=== PATIENT | female | born 1955 | race Two or more races ===

== ENCOUNTER 2019-02-17 12:41 | Day surgery (SDC) | payer OTHER ==
[2019-02-16 14:01] VITALS: BMI 32.0
[2019-02-17] MEDS ORDERED: ROPIVACAINE HCL 0.5% 30ML VIAL ONE (13:01)
[2019-02-17] MEDS ORDERED: MIDAZOLAM HCL 2 MG/2 ML SINGLE DOSE VIAL ONE ×2 (13:01→14:21)
[2019-02-17] MEDS ORDERED: SUCCINYLCHOLINE CHLORIDE 200 MG/10 ML SYRINGE ONE (13:40)
[2019-02-17] MEDS ORDERED: ONDANSETRON 4 MG/2 ML VIAL IVPUSH PRN (14:12)
[2019-02-17] MEDS ORDERED: oxyCODONE HCL 5 MG TABLET PO PRN (14:12)
[2019-02-17] MEDS ORDERED: LACTATED RINGERS SOLUTION 1,000 ML IV SCH (14:15)
[2019-02-17] MEDS ORDERED: ceFAZolin SODIUM 1 GM VIAL ONE (14:17)
[2019-02-17] MEDS ORDERED: PROPOFOL 20 ML ONE ×2 (14:31→15:03)
[2019-02-17] MEDS ORDERED: KETOROLAC TROMETHAMINE 30 MG/1 ML VIAL ONE ×2 (15:32)
[2019-02-17] MEDS ORDERED: ONDANSETRON 4 MG/2 ML VIAL ONE (15:51)
[2019-02-17 17:10] VITALS: BP 128/75
[2019-02-17 17:40] VITALS: PULSE 78; TEMP 97.8
--- NOTE | 2019-02-19 13:38 | OP ---
DATE OF OPERATION: 02/17/2019 PREOPERATIVE DIAGNOSIS: Left shoulder rotator cuff tear, subacromial impingement syndrome, labral tearing. POSTOPERATIVE DIAGNOSES: 1. Left shoulder rotator cuff tear. 2. Left shoulder subacromial impingement syndrome with anterior-inferior subacromial spur. 3. Glenohumeral joint labral partial tearing and fraying and synovitis. OPERATIVE PROCEDURES: 1. Left shoulder arthroscopic rotator cuff repair. 2. Left shoulder arthroscopic extensive debridement of glenohumeral joint. 3. Arthroscopic subacromial decompression with anterior-inferior acromioplasty. SURGEON: Primo Mondragon MD CERTIFIED HISTOLOGIC TECHNICIAN: HIRO Escalante ANESTHESIA: Regional. COMPLICATIONS: None. ESTIMATED BLOOD LOSS: Minimal. INDICATION FOR PROCEDURE: The patient is a 63-year-old, female with the above finding, indicated for operative treatment. Risks, benefits, and alternatives were discussed with patient at length. Proper informed consent was obtained. PROCEDURE: After proper identification of the patient, the patient was brought to the operating room, after she had received a regional anesthetic. She was placed into the beach-chair position with all points of contact well padded and an in-line cervical position maintained throughout the procedure. Left upper extremity was prepped and draped in the usual sterile fashion. Arthroscopy was performed through posterior, lateral, and anterior portals. All portals were made with skin incision only and blunt dissection down to the joint capsule. Arthroscope was first introduced into the glenohumeral space. The glenohumeral joint articular cartilage was free of articular defects. [id number] fraying without full-thickness tearing of the labrum was found anteriorly-superiorly. This was debrided with a mechanical shaver. The biceps anchor had mild fraying, but no detachment, and the bulk of the biceps tendon was intact. This was debrided with mechanical shaver. The extra-articular portion of the biceps tendon was pulled into the joint and found to be free of tearing or other problems. The anterior aspect of the supraspinatus tendon was found to have a full-thickness tear. The total [id number] dimension was less than 1 cm and it was retracted minimally in a crescent shape. The remainder of the rotator cuff was intact with mild fraying, which was debrided with mechanical shaver. Arthroscope was then introduced into the subacromial space, where a severe bursitis was found, which was debrided with mechanical shaver. A large anterior-inferior subacromial spur was noted and an anterior-inferior acromioplasty was performed. Again, the most anterior aspect of the supraspinatus tendon was found to have the full-thickness tear previously described and this was mobilized for repair. Greater tuberosity was also prepared for repair using mechanical shaver. ArthroWand was used for the bursectomy and debridement. At this point, an anchor was placed into the articular margin of the greater tuberosity. This was loaded with FiberTape sutures. The sutures were then passed through the two limbs of the tear and then using a double-row technique were secured laterally with a second Arthrex SwiveLock anchor. The shoulder was taken through range of motion. This provided a secure, stable repair of the rotator cuff tear. No further impingement occurred. The wounds were irrigated and repaired with 5-0 nylon suture. Sterile dressings were applied. Sling was placed. Patient was reversed from anesthesia and brought to recovery room in stable condition. She tolerated procedure well. Tray Hughes, the assistant professor sculpture, was integral throughout the procedure. Procedure could not have been performed without a skilled operative assistant professor sculpture. Lucille [id number]
== END 2019-02-17 17:35 | disposition home or self-care (01) ==
LOC: FASU 12:41
PROVIDERS: ATTEND Orthopaedic Surgery Hand Surgery
PROC: 0LQ24ZZ Repair Left Shoulder Tendon, Percutaneous Endoscopic Approach (ICD-10-PCS; principal; 2019-02-17 14:30)
PROC: 0RNK4ZZ Release Left Shoulder Joint, Percutaneous Endoscopic Approach (ICD-10-PCS; 2019-02-17 14:30)
PROC: 0RBK4ZZ Excision of Left Shoulder Joint, Percutaneous Endoscopic Approach (ICD-10-PCS; 2019-02-17 14:30)
DX: M75.122 Complete rotator cuff tear or rupture of left shoulder, not specified as traumatic (principal); M75.42 Impingement syndrome of left shoulder; M24.112 Other articular cartilage disorders, left shoulder; M65.812 Other synovitis and tenosynovitis, left shoulder
CPT/HCPCS: 94760